=== PATIENT | male | born 1985 | race African-American/Black ===

== ENCOUNTER 2018-02-06 04:05 | Emergency (ER) | payer MEDICAID ==
--- NOTE | 2018-02-06 04:52 | ED Physician Chart ---
ED Chief Complaint/HPI - Patient Information Date Seen:: 02/06/18 Time Seen:: 04:46 Chief Complaint:: ALTERED History of Present Illness:: THIS IS A 32 YO MALE BIB EMS FOUND DOWN IN THE TRAIN STATION CONFUSED AND UNCOOPERATIVE. THE PATIENT WAS SEEN AT [facility] AND CLEARED MEDICALLY AND PSYCH CLEARED. HE IS COOPERATIVE NOW THAT HE IS HERE. HE STATES THAT HE IS HOMELESS. Allergies:: Allergies Allergy/AdvReac Type Severity Reaction Status Date / Time No Known Allergies Allergy Verified 02/06/18 04:33 Vitals:: Vital Signs - 8 hr 02/06/18 04:05 Temp 97.7 F HR 99 RR 18 BP 112/79 O2 Sat % 98 Historian:: Patient, EMS Review:: Nurse's Note Reviewed ED Review of Systems - Review of Systems General/Constitutional: No fever, No chills, No weight loss, No weakness, No diaphoresis, No edema, No loss of appetite, Other (THIS PATIENT'S REVIEW OF SYSTEMS IS NOT RELIABLE) Skin: No skin lesions, No rash, No bruising Head: No headache, No light-headedness Eyes: No loss of vision, No pain, No diplopia ENT: No earache, No nasal drainage, No sore throat, No tinnitus Neck: No neck pain, No swelling, No thyromegaly, No stiffness, No mass noted Cardio Vascular: No chest pain, No palpitations, No PND, No orthopnea, No edema Pulmonary: No SOB, No cough, No sputum, No wheezing GI: No nausea, No vomiting, No diarrhea, No pain, No melena, No hematochezia, No constipation, No hematemesis G/U: No dysuria, No frequency, No hematuria Musculoskeletal: No bone or joint pain, No back pain, No muscle pain Endocrine: No polyuria, No polydipsia Psychiatric: No prior psych history, No depression, No anxiety, No suicidal ideation Hematopoietic: No bruising, No lymphadenopathy Allergic/Immuno: No urticaria, No angioedema Neurological: No syncope, No focal symptoms, No weakness, No paresthesia, No headache, No seizure, No dizziness, No confusion, No vertigo ED Past Medical History - Past Medical History Obtainable: Yes Past Medical History: Other Family History: None Social History: Smoker, Alcohol, Illicit Drug Use, Homeless Surgical History: None Psychiatricy History: Depression, Schizophrenia Medication: Reviewed Family Medical History - Family Member Mother History Unknown: Yes ED Physical Exam - Physical Examination General/Constitutional: Awake, Well-developed, well-nourished, Alert, No distress, GCS 15, Non-toxic appearing, Ambulatory Head: Atraumatic Eyes: Lids, conjuctiva normal, PERRL, EOMI Skin: Nl inspection, No rash, No skin lesions, No ecchymosis, Well hydrated, No lymphadenopathy ENMT: External ears, nose nl, Nasal exam nl, Lips, teeth, gums nl Neck: Nontender, Full ROM w/o pain, No JVD, No nuchal rigidity, No bruit, No mass, No stridor Respiratory: Nl effort/Exclusion, Clear to Auscultation, No Wheeze/Rhonchi/Rales Cardio Vascular: RRR, No murmur, gallop, rubs, NL S1 S2 GI: No tenderness/rebounding/guarding, No organomegaly, No hernia, Normal BS's, Nondistended, No mass/bruits, No McBurney tenderness : No CVA tenderness Extremities: No tenderness or effusion, Full ROM, normal strength in all extremities, No edema, Normal digits & nails Neuro/Psych: Alert/oriented, DTR's symmetric, Normal sensory exam, Normal motor strength, Judgement/insight normal, Mood normal, Normal gait, No focal deficits Misc: Normal back, No paraspinal tenderness ED Labs/Radiology/EKG Results - Lab Results Results: Abnormal Lab Results 02/06/18 02/06/18 02/06/18 04:25 04:25 05:05 WBC 6.5 RBC 5.47 Hgb 13.6 Hct 41.5 MCV 75.9 L MCH 24.8 L MCHC Differential 32.6 RDW 13.2 Plt Count 299 MPV 9.0 Neutrophils % 78.6 Lymphocytes % 16.7 L Monocytes % 3.9 Eosinophils % 0.7 Basophils % 0.1 Troponin I Urine Source RANDOM Urine Color ORANGE Urine Clarity CLEAR Urine pH 6.0 Ur Specific [place] >= 1.030 Urine Protein NEGATIVE Urine Glucose (UA) NEGATIVE Urine Ketones 15 H Urine Blood NEGATIVE Urine Nitrate NEGATIVE Urine Bilirubin SMALL H Urine Ictotest NEGATIVE Urine Urobilinogen 0.2 Ur Leukocyte Esterase NEGATIVE Urine RBC NONE SEEN Urine WBC 0-2 Ur Epithelial Cells OCCASIONAL Urine Bacteria FEW Urine Opiates Screen NEGATIVE Urine Methadone Screen NEGATIVE Ur Barbiturates Screen NEGATIVE Ur Tricyclics Screen NEGATIVE Ur Phencyclidine Scrn NEGATIVE Amphetamines Screen POSITIVE H U Methamphetamines Scrn POSITIVE H U Benzodiazepines Scrn NEGATIVE U Cocaine Metab Screen NEGATIVE U Cannabinoids Screen POSITIVE H 02/06/18 05:05 WBC RBC Hgb Hct MCV MCH MCHC Differential RDW Plt Count MPV Neutrophils % Lymphocytes % Monocytes % Eosinophils % Basophils % Troponin I < 0.01 L Urine Source Urine Color Urine Clarity Urine pH Ur Specific [place] Urine Protein Urine Glucose (UA) Urine Ketones Urine Blood Urine Nitrate Urine Bilirubin Urine Ictotest Urine Urobilinogen Ur Leukocyte Esterase Urine RBC Urine WBC Ur Epithelial Cells Urine Bacteria Urine Opiates Screen Urine Methadone Screen Ur Barbiturates Screen Ur Tricyclics Screen Ur Phencyclidine Scrn Amphetamines Screen U Methamphetamines Scrn U Benzodiazepines Scrn U Cocaine Metab Screen U Cannabinoids Screen ED Assessment - Assessment General Assessment: DRUG ABUSE ED Septic Shock - . Is Septic Shock (SBP<90, OR Lactate>4 mmol\L) present?: No - <6hrs of presentation: Vital Signs: Vital Signs - 8 hr 02/06/18 04:05 Temp 97.7 F HR 99 RR 18 BP 112/79 O2 Sat % 98 ED Reassessment (Disposition) - Reassessment Reassessment Condition:: Improved - Diagnosis Diagnosis:: DRUG ABUSE (METH/AMPHETAMINES) - Aftercare/Follow up Instructions Aftercare/Follow-Up Instructions:: Counseled pt regarding lab results/diagnosis & need follow up, Refer to Discharge Instructions, Counseled pt & family regarding lab results/diagnosis & need follow up - Patient Disposition Discharge/Transfer:: Home Condition at Disposition:: Improved ED Discharge Plan - Patient Disposition Admit/Discharge/Transfer: PT DISCHARGED HOME Condition at Disposition: Improved Additional Instructions: THIS PATIENT WILL BE UNDER THE CARE OF DR. MORENO STARTING AT 0700 HRS.
[2018-02-06 05:11] LABS: URINE MICROSCOPIC INDICATED? YES; URINE SOURCE RANDOM
[2018-02-06 05:13] LABS: % BASOPHILS 0.1 % (0.0-2.0); % EOSINOPHILS 0.7 % (0.0-5.0); % LYMPHOCYTES 16.7 % (20.0-50.0); % MONOCYTES 3.9 % (2.0-10.0); % NEUTROPHILS 78.6 % (40.0-80.0); HEMATOCRIT 41.5 % (41.0-60); HEMOGLOBIN 13.6 gm/dL (12-16); LYMPHOCYTE ABSOLUTE 1.1 Th/cmm (1.5-3.0); MEAN CELL VOLUME 75.9 fl (80-99); MEAN CORPUSCULAR HEMOGLOBIN 24.8 pg (26.0-30.0); MEAN CORPUSCULAR HGB CONC 32.6 pg (28.0-36.0); MONOCYTE ABSOLUTE 0.3 Th/cmm (0.3-1.0); NEUTROPHILE ABSOLUTE 5.1 Th/cmm (1.8-8.0); PLATELET COUNT 299 Th/cmm (150-400); RED BLOOD COUNT 5.47 Mil/cmm (4.30-5.70); RED CELL DISTRIBUTION WIDTH 13.2 % (11.5-20.0); WHITE BLOOD COUNT 6.5 Th/cmm (4.8-10.8)
[2018-02-06 05:15] LABS: URINE BILIRUBIN SMALL (NEGATIVE); URINE BLOOD NEGATIVE (NEGATIVE); URINE GLUCOSE (UA) NEGATIVE (NEGATIVE); URINE KETONE 15 mg/dL (NEGATIVE); URINE LEUKOCYTE ESTERASE NEGATIVE (NEGATIVE); URINE NITRATE NEGATIVE (NEGATIVE); URINE PROTEIN NEGATIVE (NEGATIVE); URINE UROBILINOGEN 0.2 E.U./dL (0.2 - 1.0)
[2018-02-06 05:33] LABS: ALB/GLOB RATIO 1.6 (1.0-1.8); ALBUMIN 4.4 gm/dL (4.2-5.5); ALKALINE PHOSPHATASE 53 U/L (34-104); ANION GAP 11.4 (7.0-16.0); BILIRUBIN,TOTAL 0.8 mg/dL (0.3-1.0); BUN - UREA NITROGEN 16 mg/dL (7-25); CALCIUM SERUM 9.8 mg/dL (8.6-10.3); CARBON DIOXIDE 26.1 mEq/L (21.0-31.0); CHLORIDE 102 mEq/L (98-107); GFR AFRICAN-AMERICAN > 60.0 ml/min (>90); GFR NON AFRICAN-AMERICAN > 60.0 ml/min; GLUCOSE 155 mg/dL (70-105); POTASSIUM SERUM 3.5 mEq/L (3.5-5.1); SGOT 20 U/L (13-39); SGPT/ALT 18 U/L (7-52); SODIUM SERUM 136 mEq/L (136-145); TOTAL PROTEIN,SERUM 7.1 gm/dL (6.0-8.3)
[2018-02-06 05:35] LABS: URINE CLARITY CLEAR (CLEAR); URINE COLOR ORANGE
[2018-02-06 05:36] LABS: URINE BACTERIA FEW /hpf (NONE SEEN); URINE EPITHELIAL CELLS OCCASIONAL /lpf (FEW); URINE ICTOTEST NEGATIVE (NEGATIVE); URINE RBC NONE SEEN /hpf (0-5); URINE WBC 0-2 /hpf (0-5)
[2018-02-06 05:48] LABS: AMPHETAMINE URINE POSITIVE (NEGATIVE); BARBITURATES URINE NEGATIVE (NEGATIVE); BENZODIAZEPINES QUAL URINE NEGATIVE (NEGATIVE); CANNABINOID THC POSITIVE (NEGATIVE); COCAINE METABOLITE QUAL URINE NEGATIVE (NEGATIVE); METHADONE URINE NEGATIVE (NEGATIVE); METHAMPHETAMINES QUAL URINE POSITIVE (NEGATIVE); OPIATES (MORPHINE) QUAL. URINE NEGATIVE (NEGATIVE); PHENCYCLIDINE (PCP) URINE NEGATIVE (NEGATIVE); TRICYCLICS (TCA) QUAL. URINE NEGATIVE (NEGATIVE)
--- NOTE | 2018-02-06 08:45 | Diagnostic Imaging Report ---
CT scan of the brain without contrast History: Altered mental status, stroke/CVA Total DLP equals 719 CTDI equals 36.7 Axial sections were obtained from the base of the skull to the vertex. There is a normal ventricular system size. No focal parenchymal lesions are seen. No evidence of any mass effect or shift of midline structures. No extra-axial masses or abnormal fluid collections. Impression: No acute abnormalities
== END 2018-02-06 11:05 | disposition home or self-care (01) ==
LOC: ER 04:05
DX: F15.10 Other stimulant abuse, uncomplicated (principal); F17.200 Nicotine dependence, unspecified, uncomplicated; Z59.0 Homelessness; F32.9 Major depressive disorder, single episode, unspecified
CPT/HCPCS: 36415-UA; 70450-TC; 80053-TC; 80307; 81001-TC; 84484-TC; 85025-TC